=== PATIENT | male | born 1990 | race Caucasian/White ===

== ENCOUNTER 2018-03-20 09:31 | Emergency (ER) | payer OTHER, SELFPAY ==
[2018-03-20 09:32] VITALS: BP 150/75; PULSE 70; RESP 16; TEMP 37.4; O2SAT 100; BMI 21.9
--- NOTE | 2018-03-20 09:45 | EKG12_ITS ---
Test Reason : Blood Pressure : / mmHG Vent. Rate : 083 BPM Atrial Rate : 083 BPM P-R Int : 118 ms QRS Dur : 098 ms QT Int : 360 ms P-R-T Axes : 055 078 066 degrees QTc Int : 423 ms Normal sinus rhythm Normal ECG Confirmed by BOAZ PAULSON ([id number]), visual effects editor SHAKA WALSH ([id number] on 03/25/2018 8:56:23 AM Referred By: TANNER Confirmed By:BOAZ PAULSON
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
[2018-03-20 10:03] VITALS: BP 135/74; PULSE 61; RESP 15; O2SAT 98
== END 2018-03-20 10:13 | disposition home or self-care (01) ==
LOC: ED 10:11
PROVIDERS: Emergency Provider Emergency Medicine
DX: T75.4XXA Electrocution, initial encounter (principal); R51 Headache; W86.8XXA Exposure to other electric current, initial encounter; Y93.9 Activity, unspecified; Y92.9 Unspecified place or not applicable; Y99.9 Unspecified external cause status; Z72.0 Tobacco use; Z79.899 Other long term (current) drug therapy
CPT/HCPCS: 93005; 99282

== ENCOUNTER → 2018-04-25 12:34 | Outpatient (CLI) | payer SELFPAY ==
[2018-04-25 13:39] LABS: Absolute Lymphocyte Count 2.74 X10^3/ul (0.83-4.51); Basophil# 0.04 X10^3/uL; Basophil% 0.5 % (0-1); Eosinophil# 0.13 X10^3/uL; Eosinophils% 1.6 % (0-5); Hematocrit 41.3 % (40-54); Hemoglobin 13.9 g/dl (13.0-16.5); Lymphocyte # 2.74 X10^3/ul (4.0); Lymphocyte % 33.9 % (19-41); Mean Corp Hgb Conc 33.7 g/gl (32-36); Mean Corpuscular Hgb 31.5 pg (27.0-32.0); Mean Corpuscular Volume 93.7 fL (80-94); Mean Platelet Vol. 10.9 fl (6.2-12.0); Monocyte% 14.9 % (0-10); Neutrophil # 3.97 X10^3/uL (2.7-7.7); Neutrophil % 49.1 % (47-70); Platelet Count 201 K/mm3 (150-450); RBC Distribution Width CV 12.7 % (11.6-14.6); RBC Distribution Width SD 43.9 fl (35.1-43.9); Red Blood Count 4.41 M/mm3 (4.6-6.2); White Blood Count 8.1 K/mm3 (4.4-11.0)
[2018-04-25 13:43] LABS: POSITIVE COUNT NO; POSITIVE DIFFERENTIAL NO; POSITIVE MORPHOLOGY NO
[2018-04-25 14:00] LABS: Valproic Acid (Depakene) Level 43 ug/mL (50-100)
[2018-04-25 14:07] LABS: ALB/GLOB Ratio 1.1 RATIO (0.9-2.4); AST(SGOT) 12 U/L (15-37); Alanine Aminotransfer ALT/SGPT 15 U/L (16-61); Albumin, Serum 3.7 g/dL (3.2-5.0); Alkaline Phosphatase 81 U/L (45-117); Anion Gap 7 (5-15); BUN 7 mg/dL (7-18); BUN/Creat Ratio 8.2 RATIO (10-20); Calcium,Total 8.2 mg/dL (8.5-10.1); Chloride 104 mmol/L (98-107); Creatinine, Serum 0.85 mg/dL (0.70-1.30); EST Glomerular Filtration Rate 113 mL/min (>60); Est Glom Filt Rate - Afr Amer 137 mL/min (>60); Globulin 3.4 g/dL (2.2-4.2); Glucose 87 mg/dL (74-106); Potassium 3.9 mmol/L (3.5-5.1); Protein, Total 7.1 g/dL (6.4-8.2); Sodium Level 140 mmol/L (136-145); Thyroid Stim Hormone (TSH) 0.75 uIU/mL (0.358-3.74)
--- OUTSIDE RECORDS SUMMARY | 2018-06-20 11:27 | XMS RPT_ITS ---
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 morning, he had a fever and chills, headache, generalized aching, nonproductive cough and sore throat. His significant other has had a swab-positive influenza, and son had the flu last week. He does not complain of shortness of breath. He did have an episode of vomiting this morning. PAST MEDICAL HISTORY: Negative for chronic medical problems. MEDICATIONS: He takes no medications. ALLERGIES: He is allergic to codeine. SOCIAL HISTORY: The patient lives at home. He does smoke. He drinks alcohol occasionally. He uses weed occasionally. PHYSICAL EXAMINATION: This is a 26-year-old male who is alert and appropriate. He does not appear toxic. He responds appropriately to questions and commands. His skin is warm and dry without rashes. Pupils are equal, round, and reactive to light. Extraocular muscles are intact. TMs and canals are normal. Nose with minimal clear rhinorrhea. Mouth and throat appear normal. Neck is supple without adenopathy. Lungs seem clear without crackles or wheezes. No respiratory distress. Cardiac exam is a regular rhythm without any ectopy or murmurs. Abdomen is soft, nontender. Good peripheral pulses. Good capillary refill. Vital signs: Blood pressure is 127/77, pulse 97, respirations 18, and temperature 101.1. Oxygen saturation was 98%. EMERGENCY DEPARTMENT COURSE AND TREATMENT: Since his presentation is classic for influenza and he has documented swabbed influenza in the family, we will treat him for this without testing. He was given a dose of ibuprofen and influenza instructions. He was given a slip to be off for the next three to four days. Return if symptoms worsen. DIAGNOSIS: Influenza. D: Jaylen Knight MD TD: 10:06 JOB #: [id number] Electronically signed by: TERRANCE Knight M.D. 06/05/17 07:00 Transcribed by: pancho 06/04/2017 06:13 ALLERGIES ALLERGIES DATE TYPE / CODE NAME / CODE REACTION SEVERITY SOURCE 03/20/2018 Drug codeine/F006 stomach cramps Unknown [facility] Allergy/4160 311945(RXNO Hospital 38788(SNOMED M) Repository CT) Drug CODEINE/0000 Moderate [facility] Allergy/4160 0386(RXNORM) (Severity [facility] 08227(SNOMED Modifier) Repository CT) (Qualifier Value) ENCOUNTERS ENCOUNTERS ADMIT/DISCHARGE ACCOUNT ADMITTING ENCOUNTER LOCATION SOURCE NUMBER CLASS 04/25/2018 [id number] Ambulatory [place] [facility] ing:LAB Repository 03/20/2018/03/20/20 [id number] Emergency [place] [facility] 5 [facility] ing:ED Repository 01/06/2018 [id number] RANDY, Ambulatory [facility] Repository 12/20/2017/12/22/19 [id number] ALEAH FERRARA Emergency [address] [place] [address] 18 F oom: ERBed: C [facility] Repository 08/14/2017/08/15/[id number] FELICIANO [facility] [place] [address] 18 STACIE E oom: ERBed: A [facility] Repository 06/03/2017/06/03/[id number] JAYLEN KNIGHT [facility] [place] [address] 18 oom: ERBed: A [facility] Repository PAYERS PAYERS ENCOUNTER GUARANTOR PAYER SUBSCRIBER SOURCE 04/25/2018 HOLLIS T Primary Insurance:SELF NOT GIVENUNK [facility] [id number] CR PAY [address] Number: [facility] [id number]: 330) Date:2018-04-25 Repository [phone] () 03/20/2018 HOLLIS T Primary Insurance:SELF HOLL[place] T [place] [id number] CR [facility] GREGORIADOB: [address] Number: [id number] Hospital [address]Krq: (001) [id number] Repository [phone] () Date:[id number] FERNANDO[address] [place] [address]NA: 03/20/2018 Secondary NOT GIVENUNK [facility] Insurance:SELF PAY [facility] Hospital Number: Effective Repository Date:2018-03-20 12/20/2017 HOLLIS Rosy [facility] HOLLIS KINNEYDOB: Insurance:SNOWDEN PIAZZADOB: [facility] [id number] Hospital [facility] 0 [address], [place]: [place] [id number]: [id number] Date:Plan Name:TRINITY () 08/14/2017 [facility] HOLLIS Rosy Del Angel PIAZZADOB: Insurance:SNOWDEN PIAZZADOB: [facility] [id number] Hospital [facility] 0 [address], [place] [id number]: [id number] Date:Plan Name:TRINITY () 06/03/2017 [facility] HOLLIS Rosy Del Angel PIAZZADOB: Insurance:SNOWDEN PIAZZADOB: [facility] [id number] Hospital CR [facility], OUTPATIENTPolicy 0 [address], [place]ository [place] [id number]: [id number] Date:Plan Name:TRINITY ()
== END ==
LOC: LAB 12:38
DX: R53.83 Other fatigue (principal); Z79.899 Other long term (current) drug therapy
CPT/HCPCS: 36415; 80053; 80164; 84443; 85025

== ENCOUNTER 2018-07-01 16:16 | Emergency (ER) | payer MEDICAID, SELFPAY ==
[2018-07-01 16:17] VITALS: BP 137/97; PULSE 75; RESP 20; TEMP 36.4; O2SAT 100; BMI 22.4
--- NOTE | 2018-07-01 16:20 | ED.RN ---
RECENT OD ON HIS MEDICATIONS. [facility]. WHEN RELEASED DECIDED TO STOP TAKING MEDS ON SATURDAY.
[2018-07-01] MEDS: LORazepam 2 MG/ML Syringe 1 MG IV (17:18)
[2018-07-01 17:22] VITALS: BP 121/74; PULSE 70; RESP 15; O2SAT 100
[2018-07-01 17:22] LABS: Absolute Lymphocyte Count 1.74 X10^3/ul (0.83-4.51); Basophil# 0.04 X10^3/uL; Basophil% 0.6 % (0-1); Eosinophils% 1.5 % (0-5); Hematocrit 40.1 % (40-54); Hemoglobin 13.3 g/dl (13.0-16.5); Lymphocyte # 1.74 X10^3/ul (4.0); Mean Corp Hgb Conc 33.2 g/gl (32-36); Mean Corpuscular Hgb 31.9 pg (27.0-32.0); Mean Corpuscular Volume 96.2 fL (80-94); Mean Platelet Vol. 11.4 fl (6.2-12.0); Monocyte# 0.83 X10^3/uL; Monocyte% 12.4 % (0-10); Neutrophil # 3.96 X10^3/uL (2.7-7.7); Neutrophil % 59.2 % (47-70); POSITIVE COUNT NO; POSITIVE DIFFERENTIAL NO; POSITIVE MORPHOLOGY NO; Platelet Count 160 K/mm3 (150-450); RBC Distribution Width CV 13.2 % (11.6-14.6); RBC Distribution Width SD 45.6 fl (35.1-43.9); Red Blood Count 4.17 M/mm3 (4.6-6.2); White Blood Count 6.7 K/mm3 (4.4-11.0)
--- NOTE | 2018-07-01 17:29 | NURSING ---
PEARL, CRISIS, HAS PATIENT CHART
[2018-07-01 17:31] LABS: Anion Gap 5 (5-15); BUN 11 mg/dL (7-18); BUN/Creat Ratio 12.1 RATIO (10-20); Chloride 110 mmol/L (98-107); Creatinine, Serum 0.91 mg/dL (0.70-1.30); EST Glomerular Filtration Rate 105 mL/min (>60); Est Glom Filt Rate - Afr Amer 126 mL/min (>60); Estimated Creatinine Clearance 103.74 ml/min; Glucose 86 mg/dL (74-106); Potassium 3.9 mmol/L (3.5-5.1); Sodium Level 140 mmol/L (136-145)
[2018-07-01 18:13] LABS: Alcohol, Blood (Medical)-Serum < 3.0 mg/dL
[2018-07-01] MEDS: 0.9% Normal Saline 1,000 ML 150 ML IV (18:26)
[2018-07-01 18:45] LABS: Amphetamine Urine VISTA NEGATIVE (<1000 ng/mL); Barbiturate Urine VISTA NEGATIVE (< 200 ng/mL); Benzodiazepine Urine VISTA NEGATIVE (< 200 ng/mL); Cocaine Urine VISTA NEGATIVE (< 300 ng/mL); Ecstacy Urine VISTA NEGATIVE (< 500 ng/mL); Methadone Urine VISTA NEGATIVE (< 300 ng/mL); PCP Urine VISTA NEGATIVE (< 25 ng/mL); THC Urine VISTA POSITIVE (< 50 ng/mL); Vista UDS pH Range 6
--- NOTE | 2018-07-01 18:50 | ED.DCSUM_ITS ---
- ER Visit Summary Date of Service: 07/01/18 Chief Complaint: Dizzy, vertigo History of Present Illness: The patient is a 27 M who recently overdosed on his medications, June 21. He was admitted to [place]. Patient states while there they kept him on his Effexor and Depakote, but had him on Ativan and with her cocktail. He was discharged with instructions to continue his normal Effexor and Depakote dose. Patient states he did take those until June 28 when he realized they were making him more anxious. He has not taken a dose since June 28. He now feels dizzy and nauseated which he believes is withdrawal. He tried to call his doctor at the counseling center but got no return instructions. Physical Examination: Vital signs are unremarkable. Patient is sitting upright in bed. He is anxious. Head neck examination normal. Heart is regular rate and rhythm. Lungs sounds are clear. Abdomen is soft nontender. Patient does appear anxious. He denies suicidal or homicidal thoughts. Test Results: CBC and chemistry studies are normal. EtOH is negative. Emergency Department Course and Treatment: Patient was given fluids and 1 mg of IV Ativan. He was seen by Birgit from the counseling center. Patient has a follow-up appointment scheduled on the . I advised him that he needs to taper off of these medications, not stop them cold turkey. I have written out a taper dose for him. I will also write him a short supply of Ativan. Counseling center will be making checks on him as well. Treatment Plan: [] Disposition: Discharge Impression: 1. Medication withdrawal This note was generated with [employer] dictation software. It may contain incorrect words, spelling, and punctuation that were not noted in review of the chart prior to signing ED Disposition - Plan for ED Patient: Referrals: Care Physician,No Primary [Primary Care Provider] -
--- NOTE | 2018-07-01 18:53 | ED.DEP ---
ED Disposition - Plan for ED Patient: Disposition: Home or Assisted Living Instructions: ED Stress React Prescriptions: Lorazepam [Ativan] 1 mg PO TID PRN #20 tablet PRN Reason: Anxiety Referrals: Counseling,Center [GROUP OF PHYSICIANS] - Keep Shawn appointment
--- NOTE | 2018-07-01 18:55 | CM.ED ---
SOCIAL WORK NOTE THIS WORKER UPDATED BY DR. KAISER. PATIENT NEEDING TRANSPORTATION HOME. MET WITH PATIENT AT BEDSIDE. PATIENT ON PHONE WITH GRANDMOTHER AT THIS TIME WORKING ON TRANSPORT HOME. THIS WORKER TO CHECK BACK WITH PATIENT. UPDATED PT'S NURSE AND DR. KAISER. CECILE YOUNG, RISK AND COMPLIANCE ANALYTICS DIRECTOR, HIDE STRETCHER HAND.
--- NOTE | 2018-07-01 19:02 | ED.DEP ---
ED Disposition - Plan for ED Patient: Disposition: Home or Assisted Living Instructions: ED Stress React Prescriptions: Venlafaxine HCl [Effexor] 25 mg PO DAILY #14 tablet Lorazepam [Ativan] 1 mg PO TID PRN #20 tablet PRN Reason: Anxiety Referrals: Counseling,Center [GROUP OF PHYSICIANS] - Keep Shawn appointment
[2018-07-01] MEDS: Venlafaxine HCl 75 MG Tablet PO (19:17)
--- NOTE | 2018-07-01 19:18 | ED.RN ---
500 MG OF DEPAKOTE GIVEN. MAR WILL NOT ALL SCANNING OF MEDICATION. ORDER RE-ENTERED, BUT STILL WILL NOT SCAN. Ynes HICKEY RN 025
[2018-07-01 19:21] VITALS: BP 128/85; PULSE 69; RESP 14; O2SAT 99
== END 2018-07-01 19:22 | disposition home or self-care (01) ==
PROVIDERS: Emergency Provider Emergency Medicine
DX: F13.239 Sedative, hypnotic or anxiolytic dependence with withdrawal, unspecified (principal); T42.6X5A Adverse effect of other antiepileptic and sedative-hypnotic drugs, initial encounter; Y92.9 Unspecified place or not applicable
CPT/HCPCS: 80048; 80307; 80320; 85025; 96361; 96374; 99285; J7040; A4216; G0480

== ENCOUNTER 2019-07-11 14:10 | Emergency (ER) | payer MEDICAID, SELFPAY ==
[2019-07-11 14:11] VITALS: BP 119/71; PULSE 65; RESP 16; TEMP 35.8; BMI 23.1
--- NOTE | 2019-07-11 14:26 | ED.DCSUM_ITS ---
History of Present Illness Chief Complaint: Med Refill Informant: Patient Onset: Days Context: Sudden Onset Timing: Continuous Quality: No refills remain on prescription Location: Not applicable Current Severity: Not applicable Maximum Severity: Not applicable Worsened by: Not applicable Relieved by: Not applicable Associated Symptoms: No associated symptoms Narrative: Patient is a 28-year-old male who presents for prescription refill. He is requesting prescription for BuSpar. He has no suicidal homicidal ideation. He has no complaints. Prior similar symptoms: No Recent Illness/Hospitalization: No - Past Medical History (1) No significant past medical history Status: Acute Past Medical History - Allergies and Home Meds Allergies/Adverse Reactions: Allergies codeine Adverse Reaction (Verified 07/01/18 16:19) STOMACH CRAMPS Primary Care Physician: Care Physician,No Primary [Primary Care Provider] - Prior records reviewed: Yes Lives: Alone Smoking Status: Current every day smoker Alcohol: None Drugs: None Review of Systems General: Denies: Chills, Fever, Malaise, Subjective Eyes: Denies: Visual changes - bilaterally, Blurred Vision - bilaterally ENT: Denies: Rhinorrhea, Sore throat Cardiovascular: Denies: Chest pain, Palpitations Gastrointestinal: Denies: Nausea, Vomiting Musculoskeletal: Denies: Myalgias, Arthralgias Psych: Reports: Depression. Denies: Anxiety, Suicidal thoughts, Suicidal ideations Allergy: Denies: Uticaria, Swelling of the mouth Physical Exam Vital Signs/Narrative: Vital Signs Temp Pulse Resp BP 07/11/19 14:11 96.5 F L 65 16 119/71 Inital Vital Signs reviewed: Yes General: Well nourished, Well developed, No Acute Distress Head: Normocephalic, Atraumatic Eyes: Perrl, EOMI. Negative for: Pale conjunctiva, Scleral icterus Cardiovascular: Regular rate, Regular rhythm Respiratory: No distress Skin: Normal color, No rash Neurological: Alert, Oriented x3, Cranial nerves II-XII grossly intact, Normal Strength, Normal Sensation Psychological: Normal affect Diagnostic/Tx/Re-eval - Medical Decision Making Patient presents for prescription refill. ED Disposition - Plan for ED Patient: Disposition: Home or Assisted Living Diagnosis: Medication refill Prescriptions: Buspirone HCl 20 mg PO TID #90 tab Transmission Status: Pending to [id number] Referrals: Care Physician,No Primary [Primary Care Provider] - Additional Instructions: Keep your appointment with psychiatrist. You have enough pills that will last you past your appointment.
--- NOTE | 2019-07-11 14:31 | ED.DCSUM_ITS ---
- ER Visit Summary Date of Service: 07/11/19 Chief Complaint: [] History of Present Illness: The patient is a 28 M [] Physical Examination: [] Test Results: [] Emergency Department Course and Treatment: [] Treatment Plan: [] Disposition: [] Impression: [] This note was generated with [employer] dictation software. It may contain incorrect words, spelling, and punctuation that were not noted in review of the chart prior to signing ED Disposition - Plan for ED Patient: Disposition: Home or Assisted Living Diagnosis: Medication refill Instructions: Med Refill Prescriptions: Buspirone HCl 20 mg PO TID #90 tab Transmission Status: Sent to [id number] Referrals: Care Physician,No Primary [Primary Care Provider] - Additional Instructions: Keep your appointment with psychiatrist. You have enough pills that will last you past your appointment.
== END 2019-07-11 14:45 | disposition home or self-care (01) ==
PROVIDERS: Emergency Provider Emergency Medicine
DX: Z76.0 Encounter for issue of repeat prescription (principal); F17.200 Nicotine dependence, unspecified, uncomplicated; Z88.5 Allergy status to narcotic agent
CPT/HCPCS: 99282

== ENCOUNTER 2019-10-27 12:54 | Emergency (ER) | payer MEDICAID, SELFPAY ==
[2019-10-27 12:55] VITALS: BP 131/80; PULSE 101; RESP 14; TEMP 36.7; O2SAT 98
[2019-10-27 12:59] VITALS: BP 131/80; PULSE 101; RESP 14; TEMP 36.7; O2SAT 98
--- NOTE | 2019-10-27 13:17 | EKG12_ITS ---
Test Reason : CP Blood Pressure : / mmHG Vent. Rate : 086 BPM Atrial Rate : 086 BPM P-R Int : 104 ms QRS Dur : 088 ms QT Int : 360 ms P-R-T Axes : 038 080 056 degrees QTc Int : 430 ms Sinus rhythm with short ID Otherwise normal ECG Confirmed by JAKOB UMAÑA, JOVITA ([id number]), editor managing director SHAKA WALSH ([id number]) on 10/29/2019 10:42:18 AM Referred By: JANETT Confirmed By:JOVITA ROBERT MD
--- NOTE | 2019-10-27 13:21 | ED.DCSUM_ITS ---
History of Present Illness Chief Complaint: Chest Pain Informant: Patient Onset: Days Timing: Intermittent Quality: Sharp, Tightness Location: Left Chest Current Severity: Mild Maximum Severity: Severe Relieved By: Nothing Associated Symptoms: Lightheadedness Narrative: Patient is a 29-year-old male with history of drug abuse, alcohol abuse and anxiety presenting with chest pain. Patient states he is having intermittent episodes of chest pain over the past 3 to 4 days. 2 days ago he was very stressed out and then he become dizzy and had severe chest pain over the left chest. He states it was a squeezing tightness. He states he fainted because the pain was so bad he thought he was shot in the chest. He notes he is very anxious as he was working on job applications and answering questions when this happened. He had a similar episode today however he did not faint. This is about an hour prior to arrival. He states he started to feel better. He states he just wants to make sure that there is nothing wrong with his heart especially as he used to abuse stimulants but does not anymore. Patient denies any swelling of his legs. He denies any history of DVT or PE. He denies any shortness of breath, difficulty breathing, cough, fever or chills. He states he is on BuSpar, hydroxyzine and Seroquel and receives his mental health care though [facility]. 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 He states he is currently living in his car because he recently left his baby mamma a few weeks ago. Patient states he does not want a harm himself however and feels safe to be alone. He admits to marijuana use but denies any other drug use. He states that he did have a beer this morning as well as over the weekend which he feels very guilty about. He denies any other complaints at this time. Past Medical History - Allergies and Home Meds Allergies/Adverse Reactions: Allergies codeine Adverse Reaction (Verified 10/27/19 12:59) STOMACH CRAMPS Primary Care Physician: [facility],Out of [NON-STAFF] - Past Medical History: - - anxiety Surgical History: noncontributory Lives: Alone, Homeless Smoking Status: Current every day smoker Alcohol: Occasional Drugs: Marijuana Review of Systems General: Denies: Chills, Fever, Sweats Eyes: Denies: Visual changes - bilaterally, Diplopia ENT: Denies: Rhinorrhea, Sore throat Cardiovascular: Reports: Chest pain. Denies: Palpitations Respiratory: Denies: Dyspnea, Cough, Dyspnea on exertion Gastrointestinal: Denies: Abdominal pain, Nausea, Vomiting, Diarrhea, Melena, Hematochezia Genitourinary: Denies: Dysuria, Hematuria, Frequency Musculoskeletal: Denies: Back pain, Extremity Pain Skin: Denies: Rash, Wounds Neurological: Denies: Headache, Weakness, Numbness Psych: Reports: Anxiety. Denies: Depression, Suicidal thoughts, Suicidal ideations Physical Exam Vital Signs/Narrative: Vital Signs Temp Pulse Resp BP Pulse Ox 10/27/19 12:59 98.1 F 101 H 14 131/80 H 98 10/27/19 12:55 98.1 F 101 H 14 131/80 H 98 Inital Vital Signs reviewed: Yes General: Well nourished, Well developed, No Acute Distress Head: Normocephalic, Atraumatic Eyes: Perrl, EOMI ENT: Moist mucous membranes, No rhinorrhea, TM's clear Neck: Supple, Nontender, No JVD Cardiovascular: Regular rate, Regular rhythm, No murmurs. Negative for: Murmur Respiratory: No distress, CTA bilaterally, Chest nontender Abdomen: Soft, Nontender, Nondistended, Normal bowel sounds Back: Nontender, Normal Inspection Extremities: Nontender, No edema Skin: Normal color, No rash Neurological: Alert, Oriented x3, Cranial nerves II-XII grossly intact, Normal Strength, Normal Sensation Psychological: Normal affect, - - anxious however appropriate. He has very good insight about his situation. Diagnostic/Tx/Re-eval Chest X-Ray - ED: Read by ED Physician, Read by Radiologist, No Acute Disease Clinical Impression(s) from Imaging Studies Chest X-Ray 10/27/19 13:35 IMPRESSION: Hyperinflation. The lungs are clear. Electronically Signed: Mauricio Humphreys, at 13:57 EDT , Service support , Laboratory Data 10/27/19 10/27/19 10/27/19 13:26 13:26 13:26 WBC 12.0 H RBC 5.08 Hgb 15.2 Hct 45.9 MCV 90.4 MCH 29.9 MCHC 33.1 RDW Std Deviation 42.8 RDW Coeff of Stacy 13.0 Plt Count 214 MPV 10.2 Immature Gran % (Auto) 0.300 Neut % (Auto) 69.5 Lymph % (Auto) 23.7 Calloway % (Auto) 5.9 Eos % (Auto) 0.3 Baso % (Auto) 0.3 Absolute Neuts (auto) 8.3 H Absolute Lymphs (auto) 2.84 Nucleated RBC % 0 D-Dimer Quant (PE/DVT) <= 0.27 Sodium 142 Potassium 3.4 L Chloride 106 Carbon Dioxide 26.0 Anion Gap 10 BUN 6 L Creatinine 0.81 Estim Creat Clear Calc 102.41 Est GFR (MDRD) Af Amer 143 Est GFR (MDRD) Non-Af 118 BUN/Creatinine Ratio 7.4 L Glucose 138 H Calcium 8.8 Troponin I < 0.015 TSH 1.12 - Rhythm Strip Rhythm Strip: Sinus Rhythm Rate: 86 Ectopy: None - EKG Initial EKG Interpretation: Sinus Rhythm, - - Rate of 86 NE interval is 104 QRS 88 QTc [address] segments Repeat Eval: Pain Free IBRAHIMA Risk: No Positive IBRAHIMA Elements Score: 0 - Medical Decision Making Patient is evaluated for chest pain. It is associated with severe anxiety. I suspect it is more anxiety induced however cardiac work-up is obtained. Patient is tachycardic on arrival so d-dimer is obtained. This is negative. Have low suspicion for PE and I do not think a CTA is indicated. He does not have any ischemic changes on his EKG. Troponin is normal. Chest x-ray shows some mild hyperinflation but no acute cardiopulmonary process. He has no significant electrolyte abnormalities and normal CBC. TSH is also normal. Patient be discharged home to follow-up with his counselor replaced by [facility]. I did discuss with the patient whether he is safe at home and go over risk for suicide. He declines any concern for this. He is offered to be evaluated by social service liaison today but declined stating he has his own vocational case manager. He is encouraged to take his hydroxyzine which he has to be used as needed but takes rarely. Patient is counseled on signs and symptoms requiring return to the emergency room. Patient verbalizes agreement and understand this plan. Patient discharged home in stable and improved condition. ED Disposition - Plan for ED Patient: Disposition: Home or Assisted Living Diagnosis: Atypical chest pain, Anxiety Instructions: ED Chest Pain NonCardiac Referrals: [facility],Out of [NON-STAFF] - Additional Instructions: Follow-up with your mental health doctor. Please take the hydroxyzine more frequently as needed.
[2019-10-27 13:30] VITALS: O2SAT 100
--- NOTE | 2019-10-27 13:35 | RAD_ITS ---
STUDY: X-RAY CHEST REASON FOR EXAM: Male, 29 years old. INTERMITTENT CHEST PAIN ON THE LEFT. INCREASED STRESS. HX OF ANXIETY. TECHNIQUE: Single AP portable view of the chest. COMPARISON: None. FINDINGS: EKG electrodes are seen. There is evidence of bilateral nipple piercing. Hyperinflation. The lungs are clear. There is no demonstrated pleural abnormality. Normal size heart. Normal mediastinum and yamileth. Normal visualized pulmonary arteries. Normal visualized aortic arch and descending thoracic aorta. Normal visualized thoracic spine. Normal visualized ribs, clavicles, and shoulders. There is no demonstrated abnormality of the visualized soft tissue structures of the upper abdomen. RAD/Chest 1 View (Portable) IMPRESSION: Hyperinflation. The lungs are clear. Electronically Signed: Mauricio Humphreys, at 13:57 EDT , Service support ,
[2019-10-27 13:37] LABS: Absolute Lymphocyte Count 2.84 X10^3/uL (0.83-4.51); Absolute Neutrophil Count 8.3 X10^3/uL (2.0-7.7); Basophil# 0.04 X10^3/uL; Basophil% 0.3 % (0-1); Eosinophil# 0.04 X10^3/uL; Eosinophils% 0.3 % (0-5); Hematocrit 45.9 % (40-54); Hemoglobin 15.2 g/dL (13.0-16.5); Lymphocyte # 2.84 X10^3/ul (4.0); Lymphocyte % 23.7 % (19-41); Mean Corp Hgb Conc 33.1 g/dL (32-36); Mean Corpuscular Hgb 29.9 pg (27.0-32.0); Mean Corpuscular Volume 90.4 fL (80-94); Mean Platelet Vol. 10.2 fl (6.2-12.0); Monocyte% 5.9 % (0-10); NRBC Flagged by Analyzer 0 % (0-5); Neutrophil # 8.31 X10^3/uL (2.7-7.7); Neutrophil % 69.5 % (47-70); Platelet Count 214 K/mm3 (150-450); RBC Distribution Width SD 42.8 fl (35.1-43.9); Red Blood Count 5.08 M/mm3 (4.6-6.2)
[2019-10-27 13:50] LABS: D-Dimer Quantitative (DVT/PE) <= 0.27 FEU/ug/m (0.27-0.49)
[2019-10-27 13:59] VITALS: BP 133/89; PULSE 76; RESP 19; TEMP 36.7; O2SAT 99
[2019-10-27 13:59] LABS: Anion Gap 10 (5-15); BUN 6 mg/dL (7-18); BUN/Creat Ratio 7.4 RATIO (10-20); Calcium,Total 8.8 mg/dL (8.5-10.1); Chloride 106 mmol/L (98-107); Creatinine, Serum 0.81 mg/dL (0.70-1.30); EST Glomerular Filtration Rate 118 mL/min (>60); Est Glom Filt Rate - Afr Amer 143 mL/min (>60); Estimated Creatinine Clearance 102.41 ml/min; Glucose 138 mg/dL (74-106); Potassium 3.4 mmol/L (3.5-5.1); Sodium Level 142 mmol/L (136-145); Thyroid Stim Hormone (TSH) 1.12 uIU/mL (0.358-3.74)
[2019-10-27 14:00] VITALS: BP 133/89; PULSE 76; RESP 19; TEMP 36.7; O2SAT 99
[2019-10-27 14:21] VITALS: BP 133/89; PULSE 91; RESP 14; O2SAT 100
== END 2019-10-27 14:22 | disposition home or self-care (01) ==
PROVIDERS: Emergency Provider Emergency Medicine
DX: R07.89 Other chest pain (principal); F41.9 Anxiety disorder, unspecified; R42 Dizziness and giddiness; R00.0 Tachycardia, unspecified; F19.11 Other psychoactive substance abuse, in remission; Z59.0 Homelessness; Z79.899 Other long term (current) drug therapy; Z88.5 Allergy status to narcotic agent; F17.200 Nicotine dependence, unspecified, uncomplicated
CPT/HCPCS: 71045; 80048; 84443; 84484; 85025; 85379; 93005; 99284; A4216